=== PATIENT | male | born 1965 ===

== ENCOUNTER 2019-05-20 09:38 | Inpatient (IN) ==
[2019-05-20 10:09] LABS: Basophils % 0.2 % (0.0-0.8); Hematocrit 27.9 VOL% (42.0-52.0); Hemoglobin 8.7 GM/DL (14.0-18.0); Immature Granulocytes % 2.2 %; Immature Granulocytes Absolute 0.12 #; Lymphocytes # 0.2 10*3/uL (1.4-4.0); Lymphocytes % 3.5 % (21.2-54.2); Mean Corpuscular HGB Conc 31.2 GM/DL (32-36); Mean Corpuscular Volume 98.2 FL (87-102); Monocytes % 3.6 % (1.7-12.7); Neutrophils % 90.5 % (38.7-73.9); Platelet Count 77 T/CUMM (130-400); Red Blood Count 2.84 MC/CUMM (3.8-5.5); White Blood Count 5.5 T/CUMM (4-12)
[2019-05-20 10:29] LABS: Anisocytosis 2+; Band Neutrophils 2 % (0-10); Lymphocytes 1 % (20-55); Nucleated Red Blood Cells 1 (0-5); Platelet Estimate Decreased; Segmented Neutrophils 95 % (50-85); Total Cells Counted 100
[2019-05-20 10:30] LABS: Burr Cells 3+; Macrocytosis 1+; Poikilocytosis 1+
[2019-05-20 10:38] LABS: Albumin 3.7 G/DL (3.4-5.0); Bilirubin,Total 0.8 MG/DL (0.2-1.0); Calcium 6.9 MG/DL (8.5-10.1); Osmolality,Calculated 370.4 MOS/KG (273-304); Total Protein 8.4 G/DL (6.4-8.3)
[2019-05-20] MEDS ORDERED: PIPERACILLIN/TAZOBACTAM 3,375 MG in SODIUM CHLORIDE 0.9% 100 ML IV STA (10:40)
[2019-05-20 10:42] LABS: INR 1.3; PT Patient Result 14.2 SECS (9.6-12.2)
[2019-05-20] MEDS ORDERED: ETOMIDATE 20 MG/10 ML VIAL IV ONE (10:42)
[2019-05-20] MEDS ORDERED: ROCURONIUM 100 MG/10 ML VIAL IV ONE (10:43)
[2019-05-20] MEDS ORDERED: PANTOPRAZOLE 40 MG VIAL IV STA (10:43)
[2019-05-20 10:51] LABS: Partial Thromboplastin Time 51.8 SECS (20.8-36.0)
[2019-05-20 12:07] LABS: ABG Base Excess -29.5 MMOL/L (-2.5-2.5); ABG HCO3 3.5 MMOL/L (20-26); ABG Oxygen Saturation 99.3 % (95-100); ABG TCO2 4.2 MMOL/L (23-27); Pt O2 Delivery Device Ventilator
[2019-05-20 12:08] LABS: ABG PO2 585.9 MM HG (80-95)
[2019-05-20 12:09] LABS: ABG PH 6.796 (7.35-7.45)
[2019-05-20] MEDS ORDERED: SODIUM BICARBONATE 50 MEQ/50 ML SYRINGE IV STA (12:19)
[2019-05-20] MEDS ORDERED: OCTREOTIDE 100 MCG/ML SYRINGE IV ONE ×2 (12:32→15:00)
[2019-05-20] MEDS ORDERED: ACETAMINOPHEN 325 MG TABLET PO PRN (13:01)
[2019-05-20] MEDS ORDERED: ONDANSETRON 4 MG/2 ML VIAL IV PRN (13:01)
[2019-05-20] MEDS ORDERED: SODIUM CHLORIDE 0.9% 1,000 ML IV PRN (13:01)
[2019-05-20] MEDS ORDERED: PROPOFOL 1,000 MG/100 ML BOTTLE IV SCH (13:01)
[2019-05-20] MEDS ORDERED: HEPARIN 10,000 UNIT/10 ML VIAL IV SCH (13:01)
[2019-05-20] MEDS ORDERED: LACTULOSE 20 GM/30 ML UDCUP PO SCH (13:01)
[2019-05-20] MEDS ORDERED: NOREPINEPHRINE 8 MG in SODIUM CHLORIDE 0.9% 242 ML IV PRN (13:01)
[2019-05-20 13:14] LABS: Hematocrit 25.8 VOL% (42.0-52.0); Hemoglobin 8.1 GM/DL (14.0-18.0)
[2019-05-20 13:27] LABS: INR 1.4; PT Patient Result 14.7 SECS (9.6-12.2)
[2019-05-20] MEDS ORDERED: NOREPINEPHRINE 4 MG/4 ML VIAL IV ONE (13:28)
[2019-05-20] MEDS ORDERED: SODIUM BICARB INJ 150 MEQ in DEXTROSE 5% 1,000 ML IV SCH (13:30)
[2019-05-20 13:31] LABS: Partial Thromboplastin Time 51.1 SECS (20.8-36.0)
[2019-05-20] MEDS: SODIUM BICARB INJ 150 MEQ in DEXTROSE 5% 850 ML IV SCH ×2 (13:45→20:25)
[2019-05-20 14:24] LABS: Pt O2 Delivery Device Ventilator
[2019-05-20] MEDS: PROPOFOL 1,000 MG/100 ML BOTTLE IV SCH ×4 (14:24→23:20)
[2019-05-20 14:25] LABS: ABG Base Excess -21.6 MMOL/L (-2.5-2.5); ABG HCO3 8.6 MMOL/L (20-26); ABG Oxygen Saturation 99.1 % (95-100); ABG PCO2 26.3 MM HG (35-48); ABG TCO2 7.3 MMOL/L (23-27)
[2019-05-20 14:26] LABS: ABG PH 7.061 (7.35-7.45)
[2019-05-20] MEDS: RIFAXIMIN 550 MG TABLET PO SCH ×2 (14:27→21:30)
[2019-05-20] MEDS: CALCIUM (CARBONATE) 500 MG TABLET PO SCH ×2 (14:35→21:30)
[2019-05-20] MEDS: OCTREOTIDE 500 MCG in SODIUM CHLORIDE 0.9% 100 ML IV SCH (15:15)
[2019-05-20] MEDS: LACTULOSE 320 GM/480 ML BOTTLE RECTAL SCH (18:20)
[2019-05-20 19:39] LABS: Hematocrit 28.1 VOL% (42.0-52.0)
[2019-05-20 19:42] LABS: Hemoglobin 10.1 GM/DL (14.0-18.0)
[2019-05-21] MEDS: OCTREOTIDE 500 MCG in SODIUM CHLORIDE 0.9% 100 ML IV SCH ×2 (00:15→10:37)
[2019-05-21] MEDS: LACTULOSE 320 GM/480 ML BOTTLE RECTAL SCH ×3 (00:24→12:24)
[2019-05-21 02:00] LABS: Hemoglobin 10.1 GM/DL (14.0-18.0)
[2019-05-21] MEDS: PROPOFOL 1,000 MG/100 ML BOTTLE IV SCH ×5 (02:33→18:08)
[2019-05-21] MEDS: SODIUM BICARB INJ 150 MEQ in DEXTROSE 5% 850 ML IV SCH ×2 (03:05→09:15)
[2019-05-21 03:44] LABS: ABG Base Excess -1.7 MMOL/L (-2.5-2.5); ABG HCO3 19.1 MMOL/L (20-26); ABG Oxygen Saturation 98.5 % (95-100); ABG PCO2 21.8 MM HG (35-48); ABG PH 7.561 (7.35-7.45); ABG PO2 192.4 MM HG (80-95); ABG TCO2 19.8 MMOL/L (23-27); Allen Test Positive; Pt O2 Delivery Device Ventilator
[2019-05-21 04:34] LABS: Eosinophils % 0.4 % (0.00-10.9); Hematocrit 27.7 VOL% (42.0-52.0); Immature Granulocytes % 0.9 %; Immature Granulocytes Absolute 0.05 #; Lymphocytes # 0.2 10*3/uL (1.4-4.0); Lymphocytes % 3.9 % (21.2-54.2); Mean Corpuscular HGB Conc 36.1 GM/DL (32-36); Mean Corpuscular Volume 86.3 FL (87-102); Mean Platelet Volume 12.4 FL (9.6-12.0); Neutrophils % 84.8 % (38.7-73.9); Red Blood Count 3.21 MC/CUMM (3.8-5.5); Red Cell Distribution Width 14.9 % (9.3-17.3); White Blood Count 5.4 T/CUMM (4-12)
[2019-05-21 04:37] LABS: Platelet Count 58 T/CUMM (130-400)
[2019-05-21 04:58] LABS: Hypochromasia 1+; Lymphocytes 1 % (20-55); Ovalocytes Slight; Platelet Estimate Decreased; Segmented Neutrophils 94 % (50-85); Total Cells Counted 100
[2019-05-21 04:59] LABS: Albumin 2.8 G/DL (3.4-5.0); Bilirubin,Total 1.2 MG/DL (0.2-1.0); Calcium 6.6 MG/DL (8.5-10.1); Osmolality,Calculated 315.1 MOS/KG (273-304); Total Protein 6.6 G/DL (6.4-8.3)
[2019-05-21] MEDS: POTASSIUM CHLORIDE RIDER 10 MEQ in PREMIX 1 EACH IV PRN ×10 (06:00→23:40)
[2019-05-21 07:58] LABS: Hematocrit 27.7 VOL% (42.0-52.0); Hemoglobin 10.1 GM/DL (14.0-18.0)
[2019-05-21] MEDS ORDERED: VANCOMYCIN INJ 1,000 MG in SODIUM CHLORIDE 0.9% 250 ML IV PRN (08:53)
[2019-05-21] MEDS: PANTOPRAZOLE 40 MG VIAL IV SCH (09:05)
[2019-05-21] MEDS: CALCIUM (CARBONATE) 500 MG TABLET PO SCH ×3 (09:14→22:42)
[2019-05-21] MEDS: CALCITRIOL 0.5 MCG CAPSULE PO SCH ×2 (09:14→15:05)
[2019-05-21] MEDS: RIFAXIMIN 550 MG TABLET PO SCH ×3 (09:15→22:43)
[2019-05-21] MEDS ORDERED: VANCOMYCIN INJ 1,250 MG in SODIUM CHLORIDE 0.9% 250 ML IV ONE (10:00)
[2019-05-21] MEDS: LACTULOSE 20 GM/30 ML UDCUP PO SCH ×2 (15:05→22:42)
[2019-05-21] MEDS ORDERED: GLUCAGON 1 MG VIAL IM PRN (16:28)
[2019-05-21] MEDS ORDERED: DEXTROSE 10% 250 ML BAG IV PRN (16:28)
[2019-05-21] MEDS: FLUoxetine 20 MG CAPSULE PO SCH (17:10)
[2019-05-21] MEDS: INSULIN GLARGINE 100 UNIT/ML SUBCUT SCH (17:11)
[2019-05-21] MEDS: INSULIN REGULAR 100 UNIT/ML SUBCUT SCH ×2 (17:23→23:59)
[2019-05-21] MEDS: HEPARIN 5,000 UNIT/1 ML VIAL SUBCUT SCH (22:42)
[2019-05-22] MEDS: POTASSIUM CHLORIDE RIDER 10 MEQ in PREMIX 1 EACH IV PRN (00:35)
[2019-05-22] MEDS: PROPOFOL 1,000 MG/100 ML BOTTLE IV SCH ×4 (02:38→18:04)
[2019-05-22 03:55] LABS: ABG Base Excess 5.4 MMOL/L (-2.5-2.5); ABG HCO3 29.3 MMOL/L (20-26); ABG Oxygen Saturation 99.6 % (95-100); ABG PCO2 34.3 MM HG (35-48); ABG PH 7.523 (7.35-7.45); ABG TCO2 25.7 MMOL/L (23-27); Allen Test Negative; Pt O2 Delivery Device Ventilator
[2019-05-22 04:04] LABS: Basophils % 0.4 % (0.0-0.8); Eosinophils # 0.1 10*3/uL (0.0-0.87); Eosinophils % 1.6 % (0.00-10.9); Hematocrit 27.4 VOL% (42.0-52.0); Hemoglobin 9.4 GM/DL (14.0-18.0); Immature Granulocytes % 0.6 %; Immature Granulocytes Absolute 0.03 #; Lymphocytes # 0.5 10*3/uL (1.4-4.0); Lymphocytes % 9.5 % (21.2-54.2); Mean Corpuscular HGB Conc 34.3 GM/DL (32-36); Mean Corpuscular Volume 89.5 FL (87-102); Mean Platelet Volume 12.4 FL (9.6-12.0); Monocytes % 19.1 % (1.7-12.7); Neutrophils % 68.8 % (38.7-73.9); Platelet Count 54 T/CUMM (130-400); Red Blood Count 3.06 MC/CUMM (3.8-5.5); Red Cell Distribution Width 15.4 % (9.3-17.3)
[2019-05-22 04:15] LABS: Albumin 2.3 G/DL (3.4-5.0); Osmolality,Calculated 305.7 MOS/KG (273-304); Total Protein 6.1 G/DL (6.4-8.3)
[2019-05-22 04:16] LABS: Prealbumin 12.4 MG/DL (20-40)
[2019-05-22] MEDS ORDERED: POTASSIUM CHLORIDE 20 MEQ/15 ML UDCUP PER TUBE ONE (04:27)
[2019-05-22 04:39] LABS: Eosinophils 3 % (0-10); Hypochromasia 1+; Lymphocytes 4 % (20-55); Ovalocytes Slight; Platelet Estimate Decreased; Segmented Neutrophils 79 % (50-85); Total Cells Counted 100
[2019-05-22] MEDS: HEPARIN 5,000 UNIT/1 ML VIAL SUBCUT SCH ×2 (05:45→13:47)
[2019-05-22] MEDS: INSULIN REGULAR 100 UNIT/ML SUBCUT SCH ×3 (06:11→18:23)
[2019-05-22] MEDS ORDERED: DEXTROSE IV ONE (09:30)
[2019-05-22] MEDS: PANTOPRAZOLE 40 MG VIAL IV SCH (09:33)
[2019-05-22] MEDS: RIFAXIMIN 550 MG TABLET PO SCH ×2 (09:34→21:16)
[2019-05-22] MEDS: LACTULOSE 20 GM/30 ML UDCUP PO SCH ×2 (09:34→10:28)
[2019-05-22] MEDS: CALCITRIOL 0.5 MCG CAPSULE PO SCH (09:34)
[2019-05-22] MEDS: CALCIUM (CARBONATE) 500 MG TABLET PO SCH ×3 (09:34→21:16)
[2019-05-22] MEDS: FLUoxetine 20 MG CAPSULE PO SCH (09:34)
[2019-05-22] MEDS: INSULIN GLARGINE 100 UNIT/ML SUBCUT SCH ×2 (10:28→11:46)
[2019-05-22] MEDS ORDERED: POTASSIUM CHLORIDE 20 MEQ/15 ML UDCUP PO ONE (11:36)
[2019-05-22] MEDS: POTASSIUM CHLORIDE 20 MEQ/15 ML UDCUP PO SCH ×2 (14:17→15:39)
[2019-05-22] MEDS: ALBUTEROL/IPRATROPIUM 3 ML NEB RESP TX SCH ×2 (14:52→20:19)
[2019-05-22] MEDS ORDERED: FLUoxetine 20 MG CAPSULE PO SCH (16:35)
[2019-05-22] MEDS ORDERED: VANCOMYCIN INJ 1,000 MG in SODIUM CHLORIDE 0.9% 250 ML IV ONE (18:00)
[2019-05-23] MEDS: ALBUTEROL/IPRATROPIUM 3 ML NEB RESP TX SCH ×4 (00:26→20:23)
[2019-05-23] MEDS: INSULIN REGULAR 100 UNIT/ML SUBCUT SCH ×4 (00:52→19:01)
[2019-05-23] MEDS: PROPOFOL 1,000 MG/100 ML BOTTLE IV SCH ×3 (03:15→18:06)
[2019-05-23 04:18] LABS: ABG Base Excess 3.2 MMOL/L (-2.5-2.5); ABG HCO3 26.8 MMOL/L (20-26); ABG Oxygen Saturation 98.7 % (95-100); ABG PH 7.477 (7.35-7.45); ABG TCO2 27.9 MMOL/L (23-27); Pt O2 Delivery Device Ventilator
[2019-05-23 04:26] LABS: Basophils % 0.4 % (0.0-0.8); Eosinophils # 0.2 10*3/uL (0.0-0.87); Eosinophils % 3.6 % (0.00-10.9); Hematocrit 29.2 VOL% (42.0-52.0); Hemoglobin 9.5 GM/DL (14.0-18.0); Immature Granulocytes % 0.6 %; Immature Granulocytes Absolute 0.03 #; Lymphocytes # 0.4 10*3/uL (1.4-4.0); Lymphocytes % 8.2 % (21.2-54.2); Mean Corpuscular HGB Conc 32.5 GM/DL (32-36); Mean Corpuscular Volume 93.3 FL (87-102); Mean Platelet Volume 12.8 FL (9.6-12.0); Monocytes % 21.1 % (1.7-12.7); Neutrophils % 66.1 % (38.7-73.9); Platelet Count 62 T/CUMM (130-400); Red Blood Count 3.13 MC/CUMM (3.8-5.5); Red Cell Distribution Width 16.2 % (9.3-17.3); White Blood Count 4.8 T/CUMM (4-12)
[2019-05-23 04:52] LABS: Albumin 2.5 G/DL (3.4-5.0); Bilirubin,Total 1.6 MG/DL (0.2-1.0); Calcium 6.9 MG/DL (8.5-10.1); Osmolality,Calculated 292.5 MOS/KG (273-304); Total Protein 6.4 G/DL (6.4-8.3)
[2019-05-23 06:20] LABS: Band Neutrophils 5 % (0-10); Eosinophils 1 % (0-10); Lymphocytes 5 % (20-55); Segmented Neutrophils 77 % (50-85); Total Cells Counted 100
[2019-05-23 06:21] LABS: Anisocytosis 1+; Hypochromasia 1+; Ovalocytes 1+; Platelet Estimate Decreased; Target Cells Few
[2019-05-23] MEDS: PANTOPRAZOLE 40 MG VIAL IV SCH (08:46)
[2019-05-23] MEDS: RIFAXIMIN 550 MG TABLET PO SCH ×2 (08:47→21:49)
[2019-05-23] MEDS: CALCITRIOL 0.5 MCG CAPSULE PO SCH (08:47)
[2019-05-23] MEDS: CALCIUM (CARBONATE) 500 MG TABLET PO SCH ×3 (08:47→21:49)
[2019-05-23] MEDS: LACTULOSE 20 GM/30 ML UDCUP PO SCH (08:47)
[2019-05-23] MEDS: FLUoxetine 20 MG CAPSULE PO SCH (08:54)
[2019-05-23] MEDS: INSULIN GLARGINE 100 UNIT/ML SUBCUT SCH (09:12)
[2019-05-23] MEDS: amLODIPine 5 MG TABLET PO SCH (16:49)
[2019-05-24] MEDS: ALBUTEROL/IPRATROPIUM 3 ML NEB RESP TX SCH ×4 (01:39→20:11)
[2019-05-24] MEDS: INSULIN REGULAR 100 UNIT/ML SUBCUT SCH ×4 (02:54→17:45)
[2019-05-24 03:55] LABS: ABG HCO3 24.1 MMOL/L (20-26); ABG Oxygen Saturation 98.7 % (95-100); ABG PCO2 37.3 MM HG (35-48); ABG PH 7.429 (7.35-7.45); ABG TCO2 25.3 MMOL/L (23-27); Pt O2 Delivery Device Ventilator
[2019-05-24 04:13] LABS: Basophils % 0.5 % (0.0-0.8); Eosinophils # 0.3 10*3/uL (0.0-0.87); Eosinophils % 4.9 % (0.00-10.9); Hemoglobin 9.3 GM/DL (14.0-18.0); Immature Granulocytes % 0.7 %; Immature Granulocytes Absolute 0.04 #; Lymphocytes # 0.5 10*3/uL (1.4-4.0); Lymphocytes % 8.9 % (21.2-54.2); Mean Corpuscular HGB Conc 32.1 GM/DL (32-36); Monocytes % 13.6 % (1.7-12.7); Neutrophils % 71.4 % (38.7-73.9); Platelet Count 46 T/CUMM (130-400); Red Blood Count 3.02 MC/CUMM (3.8-5.5); Red Cell Distribution Width 15.7 % (9.3-17.3); White Blood Count 6.1 T/CUMM (4-12)
[2019-05-24 04:29] LABS: Calcium 6.7 MG/DL (8.5-10.1); Osmolality,Calculated 301.5 MOS/KG (273-304)
[2019-05-24] MEDS: LACTULOSE 20 GM/30 ML UDCUP PO SCH (09:36)
[2019-05-24] MEDS: FLUoxetine 20 MG CAPSULE PO SCH (09:36)
[2019-05-24] MEDS: amLODIPine 5 MG TABLET PO SCH (09:36)
[2019-05-24] MEDS: RIFAXIMIN 550 MG TABLET PO SCH ×2 (09:36→20:45)
[2019-05-24] MEDS: PANTOPRAZOLE 40 MG VIAL IV SCH (09:36)
[2019-05-24] MEDS: CALCIUM (CARBONATE) 500 MG TABLET PO SCH ×3 (09:36→20:46)
[2019-05-24] MEDS: CALCITRIOL 0.5 MCG CAPSULE PO SCH (09:37)
[2019-05-24] MEDS: INSULIN GLARGINE 100 UNIT/ML SUBCUT SCH (09:53)
[2019-05-24] MEDS: SEVELAMER CARBONATE 800 MG TABLET PO SCH (17:45)
[2019-05-24] MEDS: hydrALAZINE 25 MG TABLET PO SCH (20:46)
[2019-05-24] MEDS: FAMOTIDINE 20 MG TABLET PO SCH (20:46)
[2019-05-25] MEDS: ALBUTEROL/IPRATROPIUM 3 ML NEB RESP TX SCH ×4 (00:02→19:42)
[2019-05-25] MEDS: INSULIN REGULAR 100 UNIT/ML SUBCUT SCH ×4 (00:59→17:56)
[2019-05-25 05:16] LABS: Basophils % 0.5 % (0.0-0.8); Eosinophils # 0.4 10*3/uL (0.0-0.87); Eosinophils % 7.2 % (0.00-10.9); Hematocrit 28.7 VOL% (42.0-52.0); Hemoglobin 9.2 GM/DL (14.0-18.0); Immature Granulocytes % 0.7 %; Immature Granulocytes Absolute 0.04 #; Lymphocytes # 0.5 10*3/uL (1.4-4.0); Mean Corpuscular HGB Conc 32.1 GM/DL (32-36); Mean Corpuscular Volume 96.6 FL (87-102); Mean Platelet Volume 11.7 FL (9.6-12.0); Monocytes % 12.5 % (1.7-12.7); Neutrophils % 70.1 % (38.7-73.9); Platelet Count 55 T/CUMM (130-400); Red Blood Count 2.97 MC/CUMM (3.8-5.5); White Blood Count 5.7 T/CUMM (4-12)
[2019-05-25 05:38] LABS: Hypochromasia 1+; Ovalocytes Slight; Platelet Estimate Decreased
[2019-05-25 05:45] LABS: Albumin 2.5 G/DL (3.4-5.0); Bilirubin,Total 1.2 MG/DL (0.2-1.0); Osmolality,Calculated 301.7 MOS/KG (273-304); Total Protein 6.7 G/DL (6.4-8.3)
[2019-05-25] MEDS: CALCITRIOL 0.5 MCG CAPSULE PO SCH (09:26)
[2019-05-25] MEDS: SEVELAMER CARBONATE 800 MG TABLET PO SCH ×3 (09:26→16:14)
[2019-05-25] MEDS: FAMOTIDINE 20 MG TABLET PO SCH ×2 (09:28→22:35)
[2019-05-25] MEDS: FLUoxetine 20 MG CAPSULE PO SCH (09:28)
[2019-05-25] MEDS: RIFAXIMIN 550 MG TABLET PO SCH ×2 (09:28→22:35)
[2019-05-25] MEDS: CALCIUM (CARBONATE) 500 MG TABLET PO SCH ×3 (09:28→22:35)
[2019-05-25] MEDS: amLODIPine 10 MG TABLET PO SCH (09:28)
[2019-05-25] MEDS: hydrALAZINE 25 MG TABLET PO SCH ×3 (09:28→22:35)
[2019-05-25] MEDS: LACTULOSE 20 GM/30 ML UDCUP PO SCH (09:33)
[2019-05-25] MEDS: INSULIN GLARGINE 100 UNIT/ML SUBCUT SCH (09:34)
[2019-05-25] MEDS ORDERED: VANCOMYCIN INJ 1,250 MG in SODIUM CHLORIDE 0.9% 250 ML IV ONE (17:00)
[2019-05-26] MEDS: ALBUTEROL/IPRATROPIUM 3 ML NEB RESP TX SCH ×3 (00:23→14:12)
[2019-05-26 05:24] LABS: Basophils % 0.2 % (0.0-0.8); Eosinophils # 0.3 10*3/uL (0.0-0.87); Eosinophils % 7.4 % (0.00-10.9); Hematocrit 28.3 VOL% (42.0-52.0); Hemoglobin 9.1 GM/DL (14.0-18.0); Immature Granulocytes % 0.7 %; Immature Granulocytes Absolute 0.03 #; Lymphocytes # 0.5 10*3/uL (1.4-4.0); Lymphocytes % 10.6 % (21.2-54.2); Mean Corpuscular HGB Conc 32.2 GM/DL (32-36); Mean Corpuscular Volume 95.6 FL (87-102); Mean Platelet Volume 11.5 FL (9.6-12.0); Monocytes % 14.3 % (1.7-12.7); Neutrophils % 66.8 % (38.7-73.9); Platelet Count 57 T/CUMM (130-400); Red Blood Count 2.96 MC/CUMM (3.8-5.5); Red Cell Distribution Width 14.5 % (9.3-17.3); White Blood Count 4.4 T/CUMM (4-12)
[2019-05-26 05:52] LABS: Eosinophils 10 % (0-10); Lymphocytes 12 % (20-55); Platelet Estimate Decreased; Segmented Neutrophils 60 % (50-85); Total Cells Counted 100
[2019-05-26 05:53] LABS: Hypochromasia 1+
[2019-05-26 05:54] LABS: Calcium 7.3 MG/DL (8.5-10.1); Osmolality,Calculated 287.5 MOS/KG (273-304)
[2019-05-26] MEDS: INSULIN REGULAR 100 UNIT/ML SUBCUT SCH ×3 (05:58→11:25)
[2019-05-26] MEDS: CALCITRIOL 0.5 MCG CAPSULE PO SCH (09:26)
[2019-05-26] MEDS: SEVELAMER CARBONATE 800 MG TABLET PO SCH ×2 (09:26→11:47)
[2019-05-26] MEDS: FLUoxetine 20 MG CAPSULE PO SCH (09:26)
[2019-05-26] MEDS: hydrALAZINE 25 MG TABLET PO SCH (09:26)
[2019-05-26] MEDS: amLODIPine 10 MG TABLET PO SCH (09:26)
[2019-05-26] MEDS: LACTULOSE 20 GM/30 ML UDCUP PO SCH (09:26)
[2019-05-26] MEDS: RIFAXIMIN 550 MG TABLET PO SCH (09:27)
[2019-05-26] MEDS: FAMOTIDINE 20 MG TABLET PO SCH (09:27)
[2019-05-26] MEDS: INSULIN GLARGINE 100 UNIT/ML SUBCUT SCH (09:27)
[2019-05-26] MEDS: CALCIUM (CARBONATE) 500 MG TABLET PO SCH (10:17)
[2019-05-26 11:41] VITALS: BP 116/48
[2019-05-26 13:30] LABS: Hepatitis B Core IgM Quant 0.09 Index; Hepatitis B Surface Ag Quant 0.16 Index; Hepatitis B Surface Ag Result Negative (Negative); Hepatitis C Virus Ab Quant < 0.02 Index; Hepatitis C Virus Ab Result Negative (Negative)
== END 2019-05-26 16:40 | disposition home or self-care (01) | DRG 279 ==
LOC: EDUNIT# → EDBD → N.ED 09:38 → N.EDINP 11:58 → SUATTDRO 11:58 → N.CC 12:45 → N.2E 05-24 17:28
PROVIDERS: ADMIT Internal Medicine; ATTEND Emergency Medicine